=== PATIENT | female | born 1995 | race African-American/Black ===

== ENCOUNTER 2016-08-29 17:47 | Emergency (ER) | payer BC ==
[2016-08-29 18:06] VITALS: BP 129/79
[2016-08-29] MEDS ORDERED: DIPHTH,PERTUSS(ACELL),TET VAC 0.5 ML VIAL IM ONE ×2 (18:06→18:08)
--- NOTE | 2016-08-29 18:18 | ERNOTE ---
Upper Extremity HPI - General Extremities Pain Location: thumb: left Time Seen by Provider: 08/29/16 17:56 Source: patient Exam Limitations: no limitations - Immun/Allergies/Home Medications Allergies/Adverse Reactions: Allergies Allergy/AdvReac Type Severity Reaction Status Date / Time No Known Allergies Allergy Verified 08/29/16 18:04 Home Medications: HOME MEDICATIONS NK [No Home Medication] 08/29/16 [Last Taken Unknown] - History of Present Illness Narrative: Patient was using a sharp knife for a demonstration when she cut her left thumb. The bleeding has currently stopped, she denies any other injuries Date (Duration): 08/29/16 Time (Timing): 17:00 Occurred: just prior to arrival Method of Injury: Reports: incised Associated Symptoms: Denies: tingling, weakness Other Injuries: Reports: none Review of Systems - Review of Systems Constitutional: Absent: recent illness, fever Respiratory: Absent: shortness of breath Cardiology: Absent: chest pain Gastrointestinal/Abdominal: Absent: nausea Skin: Present: See HPI - Patient's Past Medical History Patient History - Medical: Other - acne Patient History - Cardiac/Respiratory: No pertinent hx Patient History - Cancer: No Hx of Cancer Patient History - Surgical Procedures: No surgical history Patient History - Other: None - Social History Living Situations: home Smoking Status: Never smoker Alcohol Use: none Drug Use: none - Immunizations Immunizations Up to Date: No Physical Exam - Physical Exam General Appearance: Present: wd/wn, alert, no apparent distress Respiratory: Present: no respiratory distress Extremity Exam: Present: normal except - - 1cm cut through volar tip of thumb, not bleeding, no gaping, no nail involvement Neurological Exam: Present: alert, oriented, normal mood/affect, no motor/ sensory deficits Skin Exam: Present: normal color, warm/dry ED Progress - Vital Signs Patient's Vital Signs:: I have reviewed the patient's vital signs. Departure Clinical Impression: Laceration of thumb Qualifiers: Encounter type: initial encounter Laterality: left Qualified Code(s): S61.012A - Laceration without foreign body of left thumb without damage to nail, initial encounter - Departure Disposition: Home self-care Condition: Good Instructions: Nonsutured Laceration Care Additional Instructions: keep the wound covered and dry no sutures are needed Referrals: Louis Peralta DO [Primary Care Provider] -
== END 2016-08-29 18:25 | disposition home or self-care (01) ==
LOC: ER 17:47
DX: S61.012A Laceration without foreign body of left thumb without damage to nail, initial encounter (principal); W26.0XXA Contact with knife, initial encounter; Z23 Encounter for immunization